=== PATIENT | female | born 1940 | race Caucasian/White ===

== ENCOUNTER 2016-02-21 18:25 | Emergency (ER) | payer MEDICARE, BC ==
[~2016-02-21] VITALS: Ht 165.1 cm; Wt 75.0 kg
[~2016-02-21 18:25] MED LIST: ALPR0.25 PO; ASPI81TA82 PO; CALCTAB75 PO; CHOL1CAP6 OR; DIPH2%T PO; FISH300C2 PO; FLON0.053; FOLI400T30 PO; LEVO88TA2 PO; MAGN500T4 PO; METO25 PO; POTA99TA12 PO; PROBCAP4 PO; TAB-TAB PO; TRAZ50TA4 PO; VAGI10TA VA; VITA100017 PO; VITA100020 SL; ZOVI400T15 PO
[2016-02-21 18:27] VITALS: BP 158/88; PULSE 109; RESP 12; TEMP 98.1; O2SAT 96
== END 2016-02-21 21:31 | disposition left against medical advice (07) ==
LOC: NED 18:25
DX: Z53.21 Procedure and treatment not carried out due to patient leaving prior to being seen by health care provider (principal)
CPT/HCPCS: 99281